=== PATIENT | male | born 1975 | race Caucasian/White ===

== ENCOUNTER 2016-10-26 20:06 | Emergency (ER) | payer SELFPAY ==
[~2016-10-26] VITALS: Ht 177.8 cm; Wt 68.0 kg
--- NOTE | ~2016-10-26 | CR108 ---
[facility]. [facility] A Service [facility] RADIOLOGY TEXT RESULTS PATIENT: JASON RODRIGUES LOCATION: SED : 79 UNIT #: [id number] AGE: [address]: Po Patricia MD SEX: M ORDER DR: [id number] [place] [id number] E MR#: [id number] Acc #: [id number] NAME: JASON RODRIGUES : 1975 SEX: M STUDY DATE/TIME: 10/26/2016 21:03 UNIT: SED ROOM: STUDY DESCRIPTION: CR Finger 2 View 2nd Lt Attending Physician: Po Patricia M.D. Ordering Physician: Po Patricia M.D. Primary Care Physician: No Primary Care Physician MEDICAL IMAGING REPORT This report is preliminary unless electronic signature is present. EXAM Three views of the left second finger. DATE 10/26/2016 HISTORY Drill bit went into finger today, with pain. FINDINGS There is an obliquely oriented extraarticular fracture involving proximal margin of the distal phalanx of the left second finger. No dislocation. Mild overlying soft tissue swelling. No retained radiopaque foreign body. IMPRESSION Oblique minimally-displaced extraarticular fracture of the proximal aspect of the distal phalanx of the left second finger. No dislocation or retained radiopaque foreign body. Dictated by... La Wen M.D. THIS IS AN ELECTRONICALLY VERIFIED REPORT La Wen M.D. at 10/27/2016 2:03 PM [facility]/sarah TD: 10/27/2016 07:12 JOB #: [id number] MEDICAL IMAGING REPORT [facility]. [facility] A Service [facility] RADIOLOGY TEXT RESULTS PATIENT: JASON RODRIGUES LOCATION: SED : [birth year] UNIT #: [id number] AGE: [address]: Po Patricia MD SEX: M ORDER DR: Page 1 of 1
[~2016-10-26 20:06] MED LIST: PEN-VEE K PO; VICODIN 5/500 T1 TAB PO
== END 2016-10-27 01:45 ==
LOC: SED 20:06
DX: S62.631B Displaced fracture of distal phalanx of left index finger, initial encounter for open fracture (principal); W31.0XXA Contact with mining and earth-drilling machinery, initial encounter; F17.210 Nicotine dependence, cigarettes, uncomplicated; Y92.009 Unspecified place in unspecified non-institutional (private) residence as the place of occurrence of the external cause
CPT/HCPCS: 73140; 99285